=== PATIENT | female | born 1945 | race Caucasian/White ===

== ENCOUNTER 2021-02-13 15:10 | Outpatient (CLI) | payer MEDICARE | END 2021-02-13 15:11 | disposition home or self-care (01) | LOC: CSHCT 15:10 | PROVIDERS: ATTEND Family Medicine | DX: R42 Dizziness and giddiness (principal) | CPT/HCPCS: 70450 ==

== ENCOUNTER 2021-09-10 14:59 | Outpatient (CLI) | payer MEDICARE | END 2021-09-10 15:00 | disposition home or self-care (01) | LOC: CSHULT 14:59 | PROVIDERS: ATTEND Internal Medicine Nephrology | DX: N18.2 Chronic kidney disease, stage 2 (mild) (principal); Q61.9 Cystic kidney disease, unspecified; Q61.02 Congenital multiple renal cysts | CPT/HCPCS: 76770 ==